=== PATIENT | female | born 1995 | race Hispanic/Latino ===

== ENCOUNTER 2020-04-05 16:30 | Emergency (ER) | payer BC, OTHER ==
--- OUTSIDE RECORDS SUMMARY | 2020-04-05 16:33 | XMS REPORT | Summary of Care ---
:1995 Author Organization [facility] - Health Address [address] [place] [address] Care Team Providers Name Role Phone Pcp, Patient Does Not Have A Primary Care Provider +1-000-00 0-0000 Encounter Details Date Type Department Care Team Description 01/06/2020 Orders Only [facility] Doctor Unassigned, No [address] [facility] [place] [place] [address] [address] [place] [address] Allergies No Known Allergiesdocumented as of this encounter (statuses as of 01/06/2020) Medications Medication Sig Dispensed Refills Start Date End Date Status vit Take 1 Packet by 30 Each 10 12/26/2016 Active #[id number]-CB-dha mouth daily. (SELECT-OB + DHA) 29 mg iron-1 mg -250 mg combo packIndications: Supervision of high risk , antepartum, first trimester dextroamphetamine-amphe Take 20 mg by 0 Active tamine (ADDERALL) 20 mg mouth daily. tablet documented as of this encounter (statuses as of 01/06/2020) Active Problems Problem Noted Date Rubella non-immune status, antepartum 12/27/2016 Multiparity 12/26/2016 Supervision of high risk , antepartum 017 Over weight 12/26/2016 documented as of this encounter (statuses as of 01/06/2020) Resolved Problems Problem Noted Date Resolved Date Tobacco use complicating 12/26/201612/26 documented as of this encounter (statuses as of 01/06/2020) Immunizations Name Administration Dates Next Due DTP 1995, 1995, 1995 HIB 4 Dose Schedule 1995, 1995 Hep B, Adol or Pedi Dosage 1995, 1995 PPD (TB) 1995 Polio (IPV/OPV) 1995, 1995, 1995 documented as of this encounter Social History Tobacco Use Types Packs/Day Years Used Date Never Smoker Smokeless Tobacco: Never Used Alcohol Use Drinks/Week oz/Week Comments Yes 0 Standard drinks or equivalent 0.0 Sex Assigned at Date Recorded Not on file Job Start Date Occupation Industry Not on file Not on file Not on file Travel History Travel Start Travel End No recent travel history available. documented as of this encounter Last Filed Vital Signs Not on filedocumented in this encounter Plan of Treatment Health Maintenance Due Date Last Done Comments HPV VACCINES (1 - Female 2006 2-dose series) DTaP,Tdap,and Td Vaccines (4 2014 1995, - Tdap) 1995, 1995 CHLAMYDIA SCREENING 12/26/2017 12/26/2016 INFLUENZA VACCINE (#1) 2019 PAP SMEAR 12/26/2019 12/26/2016 PNEUMOCOCCAL 0-64 YEARS Aged Out No longe r eligible based COMBINED SERIES on patient's age to complete this to [facility] documented as of this encounter Procedures Procedure Name Priority Date/Time Associated Diagnosis Comme nts ASSIGNMENT OF BENEFITS Routine 01/06/2020 3:40 PM COMFORT ADVISOR documented in this encounter Results Not on filedocumented in this encounter Insurance Payer Benefit Plan / Group Subscriber ID Effective Dates Phone Address Type AETNA AETNA TRS CARE 0 2019-Present PPO documented as of this encounter
--- OUTSIDE RECORDS SUMMARY | 2020-04-05 16:33 | XMS REPORT | Summary of Care ---
:1995 Author Organization [facility] Address [address] [place] [id number] Care Team Providers Name Role Phone Pcp, Patient Does Not Have A Primary Care Provider +1-000-00 0-0000 Reason for Visit Reason Comments INTRAUTERINE DEVICE removal Encounter Details Date Type Department Care Team Description 01/06/2020 Office Visit [facility] Women's SinclairMaricarmen MD Family planning, IUD Healthcare- [address] (intrauterine device) [address] [place], [place] [address]DR. check/reinsertion/rem [address] (Primary Dx) [place], [place] [id number] [phone] Allergies No Known Allergiesdocumented as of this encounter (statuses as of 01/07/2020) Medications Medication Sig Dispensed Refills Start Date End Date Status dextroamphetamine Take 20 mg 0 A ctive -amphetamine by mouth (ADDERALL) 20 mg daily. tablet vit Take 1 30 Each 10 12/26/2016 01/07/2020 Disco ntinued #43-qvje-OG-dha Packet by (Pat ient (SELECT-OB + DHA) mouth daily. Reported) 29 mg iron-1 mg -250 mg combo packIndications: Supervision of high risk , antepartum, first trimester documented as of this encounter (statuses as of 01/07/2020) Active Problems Problem Noted Date Family planning, IUD (intrauterine device) check/reins ertion/removal 01/07/2020 Rubella non-immune status, antepartum 12/27/2016 Multiparity 12/26/2016 documented as of this encounter (statuses as of 01/07/2020) Resolved Problems Problem Noted Date Resolved Date Tobacco use complicating 12/26/201612/26 Supervision of high risk , antepartum 12/26/2016 01/07/2020 Over weight 12/26/2016 01/07/2020 documented as of this encounter (statuses as of 01/07/2020) Immunizations Name Administration Dates Next Due DTP [...] Yes 0 Standard drinks or equivalent 0.0 ocassionally Sex Assigned at Date Recorded Not on file Job Start Date Occupation Industry Not on file Not on file Not on file Travel History Travel Start Travel End No recent travel history available. 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 Pulse 79 01/06/2020 4:25 PM FORM TAMPING MACHINE OPERATOR Temperature 36.8 C (98.2 F) 01/06/2020 4:25 PM FORM TAMPING MACHINE OPERATOR Respiratory Rate 18 01/06/2020 4:25 PM FORM TAMPING MACHINE OPERATOR Oxygen Saturation - - Inhaled Oxygen Concentration - - Weight 78.9 kg (174 lb) 01/06/2020 4:25 PM FORM TAMPING MACHINE OPERATOR Height 175.3 cm (5' 9") 01/06/2020 4:25 PM FORM TAMPING MACHINE OPERATOR Body Mass Index 25.7 01/06/2020 4:25 PM FORM TAMPING MACHINE OPERATOR documented in this encounter Progress Notes Maricarmen Sinclair MD - 01/06/2020 3:30 PM CSTIUD REMOVAL PROCEDURE NOTE Preoperative Diagnoses: Mirena IUD inserted on 11/2017. Desires removal due to irregular spotting with severe cramping for 7 days The risks, benefits and alternatives were discussed. The patient voiced her understanding. She wished to proceed and an informed consent was obtained. Patient has been identified by name and and will be undergoing IUD removal. Patient, procedure and site have been confirmed by the following clinicians: Maricarmen Sinclair MD. Timeout performed by Maricarmen Sinclair MD Procedure: The patient is placed on the exam table in a lithotomy position. Vaginal speculum inserted. The cervix and IUD strings are visualized. IUD strings are grasped with the ring forceps and firmpressure applied to deliver the IUD through the cervical os. The patient experienced no cramping during removal,which resolved spontaneously prior to discharge. The vaginal speculum was removed. The patient tolerated the procedure well and there were no complications. Post-procedure instructions given. Patient verbalized understanding. Findings Intact IUD Assessment Plan Family planning, IUD (intrauterine device) check/reinsertion/removal (primary encounter diagnosis) Comment: uncomplicated IUD removal Plan: Will use condoms for contraception; RTC for WWE Return to clinic Reviewed patient instructions and provided printed copy. Maricarmen Sinlcair MD 01/07/2020 6:51 AM documented in this encounter Plan of Treatment Date Type Specialty Care Team Description 01/12/2020 Office Visit Obstetrics & Gynecology Elvira Nguyen PA-C [address] [place] [phone] Health Maintenance Due Date Last Done Comments HPV VACCINES (1 - Female 2006 2-dose series) DTaP,Tdap,and Td Vaccines (4 2014 1995, - Tdap) 1995, 1995 CHLAMYDIA SCREENING 12/26/2017 12/26/2016 INFLUENZA VACCINE (#1) 2019 PAP SMEAR 12/26/2019 12/26/2016 PNEUMOCOCCAL 0-64 YEARS Aged Out No longe r eligible based COMBINED SERIES on patient's age to complete this to [facility] documented as of this encounter Results Not on filedocumented in this encounter Visit Diagnoses Diagnosis Family planning, IUD (intrauterine devic e) check/reinsertion/removal - Primary Surveillance of previously prescribed in trauterine contraceptive device documented in this encounter documented as of this encounter
--- OUTSIDE RECORDS SUMMARY | 2020-04-05 16:33 | XMS REPORT | Clinical Summary ---
:1995 Author Organization [facility] Address [address] [place] [address] Care Team Providers Name Role Phone Asked, No Pcp Primary Care Provider Unavailable Allergies No Known Allergies Medications Medication Sig Dispensed Refills Start Date End Date Status naproxen (NAPROSYN) Take 1 tablet 60 tablet 0 01/28/201901/27 500 MG tablet (500 mg total) by mouth 2 (two) times a day. Active Problems No known active problems Social History Tobacco Use Types Packs/Day Years Used Date Never Assessed Sex Assigned at Date Recorded Not on file Job Start Date Occupation Industry Not on file Not on file Not on file Travel History Travel Start Travel End No recent travel history available. Last Filed Vital Signs Not on file Plan of Treatment Health Maintenance Due Date Last Done Comments CERVICAL CANCER SCREENING 2016 INFLUENZA VACCINE 06/19/2020 Results Not on fileafter 04/05/2019 Nora RAHMAN (Home) [place] [address] Advance Directives For more information, please contact: [phone] Type Date Recorded Patient Educational Technician Explanati on Advance Directives, Living Will and Medical Power of Seeing Eye Dog Teacher
--- OUTSIDE RECORDS SUMMARY | 2020-04-05 16:33 | XMS REPORT ---
:1995 Author Organization [facility] t Address [address] [place] [address] Care Team Providers Name Role Phone Asked, Pcp Primary Care Physician Unavailable Yahir CHANEY, Cam Attending Clinician Payers Payer Name Policy Type Policy Number Effective Date Expiration Date S ource Problems This patient has no known problems. Allergies, Adverse Reactions, Alerts Allergy Allergy Status Severity Reaction(s) Onset Inactive Treating Comm ents Source Name Type Date Date Clinician No Known DA Active [facility] Allergie 05-16 [place] s 00:00: d [address] [facility] Social History Social Habit Start Date Stop Date Quantity Comments Source Sex Assigned At Amandeep Card Medications Ordered Filled Start Stop Current Ordering Indication Dosage Frequency Signature Comments Components Source Medication Medication Date Date Medication? Clinician (SIG) Name Name naproxen 2019 2020- No 500mg Q.5D Take 1 [place] on (NAPROSYN) 3-12 -12 tablet Method i 500 MG 00:00: 04:59 ([address] tablet 00 :00 total) by mouth 2 (two) times a day. Procedures This patient has no known procedures. Plan of Care Planned Activity Planned Date Details Comments Source Future Scheduled 2020-06-19 INFLUENZA VACCINE [place] [facility] 00:00:00 [code = INFLUENZA VACCINE] Future Scheduled 2016 Screening for [facility] 00:00:00 malignant neoplasm of cervix (procedure) [code = 922829511] Encounters Start End Encounter Admission Attending Care Care Encounter Source Date/Time Date/Time Type Type Clinicians Facility Department ID 2020-01-06 2020-01-06 Office Maricarmen Sinclair [facility] [phone] [id number] 15:42:07 16:49:20 Visit Aiden Oconnor [id number] Mir[place] [id number] [facility] [phone] [facility] [address] [facility] Results This patient has no known results.
--- OUTSIDE RECORDS SUMMARY | 2020-04-05 16:33 | XMS REPORT | Summary of Care ---
:1995 Author Organization [facility] Address [address] [place] [address] Care Team Providers Name Role Phone Pcp, Patient Does Not Have A Primary Care Provider +1-000-00 0-0000 Reason for Visit Reason Comments INTRAUTERINE DEVICE removal Encounter Details Date Type Department Care Team Description 01/06/2020 Office Visit [facility] Women's SinclairMaricarmen MD Family planning, IUD Healthcare- [address] (intrauterine device) [address] [place], [place] [address]DR. check/reinsertion/rem [address] (Primary Dx) [place], [place] [id number] [phone] Allergies No Known Allergiesdocumented as of this encounter (statuses as of 01/07/2020) Medications Medication Sig Dispensed Refills Start Date End Date Status dextroamphetamine Take 20 mg 0 A ctive -amphetamine by mouth (ADDERALL) 20 mg daily. tablet vit Take 1 30 Each 10 12/26/2016 01/07/2020 Disco ntinued #12-sphw-TB-dha Packet by (Pat ient (SELECT-OB + DHA) [...] Comments Blood Pressure 119/76 01/06/2020 4:25 PM RED LEADER Pulse 79 01/06/2020 4:25 PM RED LEADER Temperature 36.8 C (98.2 F) 01/06/2020 4:25 PM RED LEADER Respiratory Rate 18 01/06/2020 4:25 PM RED LEADER Oxygen Saturation - - Inhaled Oxygen Concentration - - Weight 78.9 kg (174 lb) 01/06/2020 4:25 PM RED LEADER Height 175.3 cm (5' 9") 01/06/2020 4:25 PM RED LEADER Body Mass Index 25.7 01/06/2020 4:25 PM RED LEADER documented in this encounter Progress Notes Maricarmen [...] patient instructions and provided printed copy. Maricarmen Sinclair MD 01/07/2020 6:51 AM documented in this encounter Plan of Treatment Date Type Specialty Care Team Description 01/12/2020 Office Visit Obstetrics & Gynecology Elvira Nguyen PA-C [address] [place] [phone] Health Maintenance Due Date Last Done Comments HPV VACCINES (1 - Female 2006 2-dose series) DTaP,Tdap,and Td Vaccines (4 2014 1995, - Tdap) 1995, 1995 CHLAMYDIA SCREENING 12/26/2017 12/26/2016 INFLUENZA VACCINE (#1) 2019 PAP SMEAR 12/26/2019 12/26/2016 PNEUMOCOCCAL 0-64 YEARS Aged Out No longe r eligible based COMBINED SERIES on patient's age to complete this to [facility] documented as of this encounter Results Not on filedocumented in this encounter Visit Diagnoses Diagnosis Family planning, IUD (intrauterine devic e) check/reinsertion/removal - Primary Surveillance of previously prescribed in trauterine contraceptive device documented in this encounter documented as of this encounter
[2020-04-05] MEDS ORDERED: ACETAMINOPHEN 500 MG TAB ONE (18:23)
[2020-04-05] MEDS ORDERED: dexAMETHasone 10 MG/ML VIAL ONE (18:23)
[2020-04-05] MEDS ORDERED: PEN G BENZ LA 1.2MU/2ML SYRINGE IM ONE (18:24)
--- NOTE | 2020-04-05 18:24 | EDPHYS ---
Physician Documentation [facility] Name: Sully Stewart Age: 25 yrs Sex: Female : 1995 Arrival Date: 04/05/2020 Time: 16:35 Bed 14 Private MD: ED Physician Mario Alberto Hernandez HPI: 04/05 18:00 This 25 yrs old Female presents to ER via Ambulatory with complaints of Fever, rn Sore Throat. 18:00 The patient reports fever, not measured (subjective). Onset: The symptoms/episode rn began/occurred yesterday. Modifying factors: there are no obvious modifying factors. Severity of symptoms: At their worst the symptoms were moderate in the emergency department the symptoms are unchanged. The patient has not experienced similar symptoms in the past. Reports fever and sore throat, painful with swallowing, swollen tonsils, no sick contacts. No cough/sob. No neck stiffness or pain.. Historical: - Allergies: 16:43 No Known Allergies; sv - PMHx: 16:43 None; sv - PSHx: 16:43 None; sv - Immunization history:: Flu vaccine is up to date. - Social history:: Smoking status: Patient denies any tobacco usage or history of. - Family history:: not pertinent. - Hospitalizations: : No recent hospitalization is reported. ROS: 18:00 Constitutional: + fever ENT: + sore throat Neck: Negative for injury, pain, and rn swelling, Cardiovascular: Negative for chest pain, palpitations, and edema, Respiratory: Negative for shortness of breath, cough, wheezing, and pleuritic chest pain, Abdomen/GI: Negative for abdominal pain, nausea, vomiting, diarrhea, and constipation, MS/Extremity: Negative for injury and deformity, Skin: Negative for injury, rash, and discoloration, Neuro: Negative for headache, weakness, numbness, tingling, and seizure. Exam: 18:00 Constitutional: This is a well developed, well nourished patient who is awake, alert, rn and in no acute distress. Head/Face: Normocephalic, atraumatic. ENT: + tonsillar hypertrophy with exudate, no peritonsillar abscess, uvula midline, no stridor Neck: Trachea midline, Supple, full range of motion without nuchal rigidity, or vertebral point tenderness. No Meningismus. Cardiovascular: Tachycardic, regular Respiratory: No increased work of breathing, no retractions or nasal flaring. Vital Signs: 16:43 BP 121 / 71; Pulse 129; Resp 18; Temp 100.7(O); Pulse Ox 100% ; Weight 77.11 kg; Height sv 5 ft. 9 in. (175.26 cm); 18:43 Temp 98.9; ah 16:43 Body Mass Index 25.10 (77.11 kg, 175.26 cm) sv MDM: 17:52 Patient medically screened. rn 18:22 Differential diagnosis: viral Infection, bacterial infection, URI. Data reviewed: vital rn signs, nurses notes, lab test result(s), Flu: negative and as a result, I will discharge patient. Counseling: I had a detailed discussion with the patient and/or guardian regarding: the historical points, exam findings, and any diagnostic results supporting the discharge/admit diagnosis, lab results, the need for outpatient follow up, to return to the emergency department if symptoms worsen or persist or if there are any questions or concerns that arise at home. Special discussion: I discussed with the patient/guardian in detail that at this point there is no indication for admission to the hospital. It is understood, however, that if the symptoms persist or worsen the patient needs to return immediately for re-evaluation. ED course: Strep +, flu neg, no peritonsillar abscess, just began yesterday, no signs or symptoms retropharyngeal abscess, requested bicillin instead of oral abx, and given steroids IM here. . 04/05 16:45 Order name: Flu; Complete Time: 17:48 sv 04/05 16:45 Order name: Strep; Complete Time: 17:48 sv 18 18:05 Interpretation: Abnormal. rn Administered Medications: 18:25 Drug: Bicillin L-A 1.2 million units Route: IM; Site: left ventrogluteal; ah 18:50 Follow up: Response: No adverse reaction 18:25 Drug: Decadron 10 mg Route: IM; Site: right ventrogluteal; ah 18:50 Follow up: Response: No adverse reaction 18:25 Drug: Tylenol 1000 mg Route: PO; ah 18:49 Follow up: Response: No adverse reaction; Temperature is decreased Disposition: 04/05/20 18:24 Discharged to Home. Impression: Streptococcal tonsillitis. - Condition is Stable. - Discharge Instructions: Strep Throat. - Medication Reconciliation Form, Thank You Letter, Antibiotic Education, Prescription Opioid Use form. - Follow up: Private Physician; When: As needed; Reason: Recheck today's complaints, Re-evaluation by your physician. - Problem is new. - Symptoms have improved. Signatures: Dispatcher [employer] Xiomara Mendieta RN RN Mario Alberto Hernandez MD MD rn Harris, Amy, RN RN Corrections: (The following items were deleted from the chart) 18:51 18:24 04/05/2020 18:24 Discharged to Home. Impression: Streptococcal tonsillitis. ah Condition is Stable. Forms are Medication Reconciliation Form, Thank You Letter, Antibiotic Education, Prescription Opioid Use. Follow up: Private Physician; When: As needed; Reason: Recheck today's complaints, Re-evaluation by your physician. Problem is new. Symptoms have improved. rn
--- NOTE | 2020-04-05 18:24 | ER ---
Nurse's Notes [facility] Name: Sully Stewart Age: 25 yrs Sex: Female : 1995 Arrival Date: 04/05/2020 Time: 16:35 Bed 14 Private MD: Diagnosis: Streptococcal tonsillitis Presentation: 04/05 16:42 Chief complaint: Patient states: sore throat, body aches, unable to eat or drink x 1 sv day. Coronavirus screen: Patient denies a cough. Patient denies shortness of breath or difficulty breathing. Patient reports a measured and/or subjective temperature greater than 100.4F. Patient denies travel on a cruise ship or to a country the [facility] currently lists as an affected area. Patient denies contact with known and/or suspected case of COVID-19. Ebola Screen: No symptoms or risks identified at this time. Risk Assessment: Do you want to hurt yourself or someone else? Patient reports no desire to harm self or others. Onset of symptoms was April 04, 2020. 16:42 Method Of Arrival: Ambulatory sv 16:42 Acuity: BETH 3 sv 16:43 Initial Sepsis Screen: Does the patient meet any 2 criteria? HR > 90 bpm. No. Patient's sv initial sepsis screen is negative. Does the patient have a suspected source of infection? No. Patient's initial sepsis screen is negative. Historical: - Allergies: 16:43 No Known Allergies; sv - PMHx: 16:43 None; sv - PSHx: 16:43 None; sv - Immunization history:: Flu vaccine is up to date. - Social history:: Smoking status: Patient denies any tobacco usage or history of. - Family history:: not pertinent. - Hospitalizations: : No recent hospitalization is reported. Screenin:31 Abuse screen: Denies threats or abuse. Nutritional screening: No deficits noted. Tuberculosis screening: No symptoms or risk factors identified. Fall Risk None identified. Assessment: 18:00 General: Appears uncomfortable, Behavior is calm, cooperative. General: Reports chills ah for fever for 12-24 hours. Pain: Complains of pain in sore throat. Neuro: Level of Consciousness is awake, alert, Oriented to person, place, time, situation. Cardiovascular: Heart tones S1 S2 present Capillary refill < 3 seconds Patient's skin is warm and dry. Respiratory: Airway is patent Respiratory effort is even, unlabored, Respiratory pattern is regular, symmetrical. GI: No signs and/or symptoms were reported involving the gastrointestinal system. : No signs and/or symptoms were reported regarding the genitourinary system. EENT: Throat is reddened has patchy exudate. Derm: No signs and/or symptoms reported regarding the dermatologic system. Musculoskeletal: No signs and/or symptoms reported regarding the musculoskeletal system. 18:45 Reassessment: No adverse reaction noted to injections. Pt given discharge instructions. Pt voiced understanding. Vital Signs: 16:43 BP 121 / 71; Pulse 129; Resp 18; Temp 100.7(O); Pulse Ox 100% ; Weight 77.11 kg; Height sv 5 ft. 9 in. (175.26 cm); 18:43 Temp 98.9; ah 16:43 Body Mass Index 25.10 (77.11 kg, 175.26 cm) ED Course: 16:35 Patient arrived in ED. mr 16:42 Triage completed. sv 16:43 Arm band placed on. 17:52 Mario Alberto Hernandez MD is Attending Physician. rn 17:52 Elyssa Stewart RN is Primary Nurse. 18:31 No provider procedures requiring assistance completed. Patient did not have IV access during this emergency room visit. 18:51 Patient has correct armband on for positive identification. Bed in low position. Call light in reach. Side rails up X 1. Administered Medications: 18:25 Drug: Bicillin L-A 1.2 million units Route: IM; Site: left ventrogluteal; 18:50 Follow up: Response: No adverse reaction 18:25 Drug: Decadron 10 mg Route: IM; Site: right ventrogluteal; 18:50 Follow up: Response: No adverse reaction 18:25 Drug: Tylenol 1000 mg Route: PO; 18:49 Follow up: Response: No adverse reaction; Temperature is decreased Outcome: 18:24 Discharge ordered by . rn 18:51 Discharged to home ambulatory. 18:51 Condition: good 18:51 Discharge instructions given to patient, Instructed on discharge instructions, follow up and referral plans. Demonstrated understanding of instructions, follow-up care. 18:51 Patient left the ED. Signatures: Doris, Xiomara, Harriett Wise RN mr Mario Alberto Hernandez MD MD rn Harris, Elyssa, SHLOMO vanegas Corrections: (The following items were deleted from the chart) 17:42 16:42 Acuity: BETH 4 solomon carbajal
[2020-04-05 19:14] VITALS: BP 121/71; O2SAT 100
[2020-04-05 19:15] VITALS: TEMP 98.9
== END 2020-04-05 18:51 | disposition home or self-care (01) ==
LOC: ER 16:30
DX: J03.00 Acute streptococcal tonsillitis, unspecified (principal)
CPT/HCPCS: 87081; 87804 ×2; 96372; 99283; J0561; J1100